=== PATIENT | female | born 1990 | race Caucasian/White ===

== ENCOUNTER 2016-09-20 20:53 | Inpatient (IN) | payer OTHER ==
[~2016-09-20] VITALS: Ht 162.6 cm; Wt 53.5 kg
[~2016-09-20 20:53] MED LIST: IBUPROFEN600 MG PO
[2016-09-20 21:02] VITALS: BP 125/78
--- NOTE | 2016-09-20 21:19 | NUR ---
Note undone in EDM - 09/20/16 at 2227 by BARRY 26 Y/O HERE W/C/O LOWER BACK AND ABD PAIN X 3 DAYS. PT STATES WAS DIAGNOSED WITH KIDNEY INFECTION BY PMD ON Wednesday09/19/16. PER PT PT HAS GOTTEN WORSE DAY BY DAY. NO S/S OF DISTRESS ER MD JOSEPHD.
--- NOTE | 2016-09-20 21:19 | NUR ---
PT TAKEN TO BED 2
--- NOTE | 2016-09-20 21:26 | NUR ---
Dr. Ferrara evaluating patient at bedside.
[2016-09-20] MEDS ORDERED: KETOROLAC 30 MG/ML VIAL IVP ONE (21:40)
[2016-09-21] MEDS ORDERED: CIPRO500 M1 PO (00:02)
[2016-09-21] MEDS ORDERED: MAPAP500 M4 PO (00:02)
[2016-09-21] MEDS ORDERED: ACETAMINOPHEN 325 MG TAB PO PRN (00:35)
[2016-09-21] MEDS ORDERED: ONDANSETRON 4 MG/2 ML VIAL IVP PRN (00:35)
[2016-09-21] MEDS ORDERED: MORPHINE SULFATE 4 MG/ML SYR IVP PRN (00:35)
--- NOTE | 2016-09-21 00:45 | NUR ---
Patient will be admitted to care of DR. Delores RAI. Admited to [facility]. Will go to room 122 A. Belongings list completed. Report to NARCISO CASIANO.
--- NOTE | 2016-09-21 00:53 | NUR ---
PT TRASFERRED TO MED SURG VIA WHEEL CHAIR BY ISAAC MATHEW. NO S/S OF DISTRESS NOTED ON TRASFER.
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
[2016-09-21 01:27] VITALS: BP 110/62
[2016-09-21] MEDS: NACL 0.9% 1,000 ML IV SCH ×3 (01:39→20:31)
--- NOTE | 2016-09-21 01:49 | NUR ---
Patient's Plan of Care was discussed and reviewed with SENIOR GROUP MANAGER: OH Traylor
--- NOTE | 2016-09-21 02:02 | NUR ---
PATIENT ENCOURAGED TO DRINK FLUIDS AND I GAVE HER SOME CRANBERRY JUICE.
--- NOTE | 2016-09-21 02:02 | NUR ---
PATIENT IS CURRENTLY EATING SHE IS ON A REGULAR DIET.IVF INFUSING WELL IV SITE PATENT.
--- NOTE | 2016-09-21 02:15 | NUR ---
MRSA OF THE [facility] HAS BEEN COLLECTED WILL BE SEND TO THE LAB.
--- NOTE | 2016-09-21 04:35 | NUR ---
PATIENT IS CURRENTLY SLEEPING IN BED,IVF INFUSING WELL IV SITE PATENT NO COMPLAINS OF PAIN OR DISCOMFORT WILL CONTINUE TO MONITOR.
--- NOTE | 2016-09-21 06:26 | NUR ---
PATIENT SLEEPING IN BED,IVF INFUSING WELL IV SITE PATENT,NO COMPLAINS OF PAIN OR DISCOMFORT NOTED WILL CONTINUE TO MONITOR.CALL LIGHT WITHIN REACH.
--- NOTE | 2016-09-21 07:30 | NUR ---
RECEIVED PT RESTING COMFORTABLY IN BED, AAOX4, ABLE TO VERBALIZE NEEDS; NO COMPLAINTS OF PAIN, N/V, OR S/S ACUTE DISTRESS AT THIS TIME. ROUTINE/PLAN OF CARE DISCUSSED AND REVIEWED, PT VERBALIZES UNDERSTANDING AND COMPLIANCE. IVF INFUSING TO RIGHT AC, SITE ASYMPTOMATIC. SAFETY PRECAUTIONS OBSERVED AND MAINTAINED, ENCOURAGED PT TO CALL FOR ASSISTANCE NEEDED.
--- NOTE | 2016-09-21 07:32 | NUR ---
PATIENT STABLE REPORT ENDORSED TO NARCISO CHLIDERS AT BEDSIDE SHE WILL RESUME CARE OF THE PATIENT.
[2016-09-21 08:00] VITALS: BP 121/72
--- NOTE | 2016-09-21 09:15 | NUR ---
PATIENT HAS BEEN SCREENED AND CATEGORIZED MODERATE NUTRITION RISK. PATIENT WILL BE SEEN WITHIN 3-5 DAYS OF ADMISSION. 09/23/16-09/25/[address]
--- NOTE | 2016-09-21 10:00 | NUR ---
INDEPENDENT ADLs OBSERVED. CONDITION REMAINS STABLE.
--- NOTE | 2016-09-21 10:08 | NUR ---
CM NOTE INITIAL REVIEW SENT TO [facility] FAX# [phone] PH# [phone] WINDY EXT [id number] MIC AUGUST EXT [phone]
[2016-09-21] MEDS: HYDROcodone/APAP 5/325 MG 1 TAB TAB PO PRN ×2 (11:55→21:38)
--- NOTE | 2016-09-21 11:55 | NUR ---
MEDICATED WITH NORCO PO FOR C/O MODERATE SUPRAPUBIC PAIN, EDUCATION GIVEN; SEE PAIN ASSESSMENT.
--- NOTE | 2016-09-21 13:15 | NUR ---
PT SEEN AND ASSESSED BY DR RAI, DISCUSSED PT CONDITION AND PLAN OF CARE. NEW ORDERS ACKNOWLEDGED. CT DONE.
[2016-09-21 16:00] VITALS: BP 114/62
--- NOTE | 2016-09-21 16:00 | NUR ---
VSS. NO S/S DISTRESS.
--- NOTE | 2016-09-21 18:00 | NUR ---
CONDITION REMAINS STABLE, FAMILY MEMBERS AT BEDSIDE.
--- NOTE | 2016-09-21 18:38 | NUR ---
ASSISTED PT OOB TO RESTROOM, TOLERATED WELL. VSS. Addendum: 09/21/16 at 1857 by Mya Mazariegos RN ERROR: INCORRECT PT.
--- NOTE | 2016-09-21 19:11 | NUR ---
CONDITION STABLE, ENDORSED PLAN OF CARE TO CHRONOMETER REPAIRER RN.
--- NOTE | 2016-09-21 19:12 | NUR ---
RECD. RESTING IN BED, AWAKE, A/OX4. RESPIRATION EVEN AND UNLABORED. IV OF NS AT 100 ML/HR INFUSING, LEFT FOREARM G. 22. ENCOURAGED TO DRINK MORE WATER AND CRANBERRY JUICES. PLAN OF CARE FOR THE SHIFT DISCUSSED. VERBALIZED UNDERSTANDING. DENIES PAIN 0/10.
--- NOTE | 2016-09-21 20:00 | NUR ---
Patient's Plan of Care was discussed and reviewed with CALENDER ROLL PRESS OPERATOR: FLORENCIA JONES
--- NOTE | 2016-09-21 21:20 | NUR ---
MOTHER CAME AND UPDATED WITH PATIENT'S LAB RESULTS. WANT TO KNOW IF PATIENT CAN GO HOME TOMORROW. INFORMED MD WILL MAKE ROUNDS TOMORROW AND MD WILL DECIDE.
[2016-09-22] VITALS: BP 114/75
--- NOTE | 2016-09-22 | NUR ---
STILL AWAKE IN BED, ADVISED TO GO TO SLEEP.
[2016-09-22] MEDS: NACL 0.9% 1,000 ML IV SCH ×3 (02:00→14:05)
--- NOTE | 2016-09-22 04:00 | NUR ---
AMBULATED TO BR TO VOID, CLAIMED HAVING PRESSURE LIKE FEELING IN THE LOWER ABDOMEN. BACK TO BED AFTER VOIDING. GAIT STEADY.
--- NOTE | 2016-09-22 06:45 | NUR ---
CONDITION REMAIN STABLE. WILL ENDORSE TO AM NURSE FOR CONTINUITY OF CARE.
--- NOTE | 2016-09-22 07:15 | NUR ---
RECEIVED REPORT FROM NIGHT NURSE. PT IS AAOX4, PT IS ON ROOM AIR. IV TO LEFT FA 22G INFUSING WELL, RIGHT AC 22G SALINE LOCK PATENT AND INTACT, SKIN INTACT. PT SATES NO PAIN AT THIS TIME. INITIAL ASSESSMENT COMPLETED. REVIEWED PLAN OF CARE WITH PT. PT VERBALIZED UNDERSTANDING. ORIENTED PT TO ROOM AND ENVIRONMENT, ALL SAFETY PRECAUTIONS MET, ALL NEEDS MET. CALL LIGHT WITHIN REACH. WILL CONTINUE TO MONITOR.
--- NOTE | 2016-09-22 07:15 | NUR ---
ENDORSED TO NARCISO WELLS FOR CONTINUITY OF CARE.
[2016-09-22 08:00] VITALS: BP 101/61
[2016-09-22] MEDS ORDERED: ENOXAPARIN 40 MG/0.4 ML SYR SUBQ SCH (09:00)
--- NOTE | 2016-09-22 09:02 | NUR ---
CM NOTE CONCURRENT REVIEW SENT TO [facility] FAX# [phone] PH# [phone] ATTN: MIC AUGUST EXT [phone]
--- NOTE | 2016-09-22 09:08 | NUR ---
DUE MEDICATIONS GIVEN. PT CURRENTLY AWAKE, WATCHING TV. ALL NEEDS MET. CALL LIGHT WITHIN REACH. WILL CONTINUE TO MONITOR.
--- NOTE | 2016-09-22 11:10 | NUR ---
CHECKED IN ON PT, PT CURRENTLY SITTING IN BED WATCHING TV, NO S/S OF DISTRESS OR DISCOMFORT NOTED. CALL LIGHT WITHIN REACH. WILL CONTINUE TO MONITOR.
--- NOTE | 2016-09-22 13:33 | NUR ---
PT CURRENTLY TALKING ON CELLPHONE. NO S/S OF DISTRESS OR DISCOMFORT NOTED. CALL LIGHT WITHIN REACH. WILL CONTINUE TO MONITOR.
[2016-09-22] MEDS: HYDROcodone/APAP 5/325 MG 1 TAB TAB PO PRN (14:20)
--- NOTE | 2016-09-22 15:35 | NUR ---
PT CURRENTLY IN BED WATCHING TO, PT STATES NO PAIN AT THIS TIME. CALL LIGHT WITHIN REACH. WILL CONTINUE TO MONITOR.
[2016-09-22 16:00] VITALS: BP 110/65
--- NOTE | 2016-09-22 16:45 | NUR ---
REVIEWED DISCHARGE PLAN WITH PT, PT VERBALIZED UNDERSTANDING.
[2016-09-22] MEDS ORDERED: KEFLEX250 MG PO (17:05)
[2016-09-22] MEDS ORDERED: NORCO 325 MG-51 TAB PO (17:06)
--- NOTE | 2016-09-22 17:20 | NUR ---
PT SIGNED ALL DISCHARGE PAPERWORK, PRESCRIPTION AND EDUCATION GIVEN PT VERBALIZED UNDERSTANDING, IV REMOVED TIP INTACT. ID BANDS REMOVED, ALL PERSONAL BELONGINGS WITH PT. AWAITING FOR PT MOTHER TO PICK HER UP.
--- NOTE | 2016-09-22 17:56 | NUR ---
PT WAS WALKED OUT TO FRONT LOBBY IN STABLE CONDITION.
== END 2016-09-22 17:57 | disposition home or self-care (01) | DRG 347 ==
LOC: MED 20:53 → MTU 09-21 00:08
PROVIDERS: ADMIT Hospitalist; ATTEND Hospitalist
DX: M43.17 Spondylolisthesis, lumbosacral region (principal); N12 Tubulo-interstitial nephritis, not specified as acute or chronic; M47.897 Other spondylosis, lumbosacral region; Z79.2 Long term (current) use of antibiotics; Z79.899 Other long term (current) drug therapy

== ENCOUNTER 2019-03-28 13:10 | Emergency (ER) | payer OTHER ==
[~2019-03-28] VITALS: Ht 157.5 cm; Wt 59.0 kg
[~2019-03-28 13:10] MED LIST changes: +ACET-1082 PO; +CEPH250C16 PO; +HYDR-5122 PO; -IBUPROFEN600 MG PO
--- NOTE | 2019-03-28 13:16 | NUR ---
PATIENT AMBULATED TO BED 9
[2019-03-28 13:20] VITALS: BP 132/83
--- NOTE | 2019-03-28 13:40 | NUR ---
Patient presents to ER for intermittant chest wall pain starting at 0500. Currently denies chest pain. c/o SOB, patients oxygen saturation 100% on room air. Respirations even and unlabored. can speak in complete sentences without difficulty. Patient is AA&Ox4. Placed on library monitor sinus tach noted, 102 hr. denies any past medical history. Updated on poc, verbalized understanding. Will continue to monitor.
--- NOTE | 2019-03-28 14:13 | NUR ---
PA at bedside.
[2019-03-28 14:28] VITALS: BP 104/77
== END 2019-03-28 14:27 | disposition home or self-care (01) ==
LOC: MED 13:10
DX: R07.89 Other chest pain (principal); R06.02 Shortness of breath; Z79.2 Long term (current) use of antibiotics; Z79.891 Long term (current) use of opiate analgesic; Z79.1 Long term (current) use of non-steroidal anti-inflammatories (NSAID)
CPT/HCPCS: 93005; 99283

== ENCOUNTER 2019-07-06 16:56 | Emergency (ER) | payer OTHER ==
--- NOTE | 2019-07-06 17:30 | NUR ---
NO ANSWER IN ER LOBBY
--- NOTE | 2019-07-06 18:08 | NUR ---
NO ANSWER IN ER LOBBY
== END 2019-07-06 17:40 | disposition left against medical advice (07) ==
LOC: MED 16:56
DX: Z53.21 Procedure and treatment not carried out due to patient leaving prior to being seen by health care provider (principal)

== ENCOUNTER 2022-11-03 20:16 | Emergency (ER) | payer OTHER ==
[~2022-11-03] VITALS: Ht 152.4 cm; Wt 67.6 kg
[2022-11-03 21:09] VITALS: BP 130/76
[2022-11-03 21:28] VITALS: BP 130/76
--- NOTE | 2022-11-03 21:39 | NUR ---
Blood for labwork drawn by [facility]. Patient tolerated well.
[2022-11-03 21:48] LABS: BILIRUBIN,URINE NEGATIVE (NEGATIVE); BLOOD, URINE 3+ (NEGATIVE); COLOR,URINE YELLOW (YELLOW); LEUKOCYTE ESTERASE ,URINE 1+ (NEGATIVE); NITRITE, URINE NEGATIVE (NEGATIVE); PH,URINE 6.5 (5.0-9.0); UGLUCOSE NEGATIVE (NEGATIVE)
[2022-11-03 21:50] LABS: BASOPHILS % (AUTO) 0.4 % (0.0-2.0); EOSINOPHILS # (AUTO) 0.1 K/uL (0-0.4); EOSINOPHILS % (AUTO) 0.6 % (0.0-4.0); HEMATOCRIT 39.2 % (36-48); HEMOGLOBIN 13.3 g/dL (12.0-16.0); LYMPHOCYTES # (AUTO) 2.7 K/uL (2.5-16.5); MEAN CORPUSCULAR HEMOGLOBIN 29 pg (27-31); MEAN CORPUSCULAR HGB CONC 34 g/dL (33-37); MONOCYTES # (AUTO) 0.4 K/uL (0.8-1.0); MONOCYTES % (AUTO) 5.2 % (1.7-9.3); NEUTROPHILS # (AUTO) 5.3 K/uL (1.8-7.7); NEUTROPHILS % (AUTO) 61.8 % (42.2-75.2); PLATELET COUNT (AUTO) 314 K/uL (140-450); RED BLOOD CELL COUNT(AUTO) 4.62 MIL/uL (4.20-5.40); RED CELL DISTRIBUTION WIDTH 12.9 % (11.6-13.7); WHITE BLOOD COUNT (AUTO) 8.6 K/uL (4.8-10.8)
--- NOTE | 2022-11-03 21:52 | NUR ---
PT TAKEN TO BED 5
[2022-11-03 21:57] LABS: APPEARANCE,URINE CLOUDY (CLEAR)
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
[2022-11-03 22:05] LABS: ANION GAP 12.1 (8-16); CARBON DIOXIDE 26.9 mmol/L (21-32); CREATININE 0.9 mg/dL (0.6-1.3); TOTAL BILIRUBIN 0.3 mg/dL (0.0-1.0)
--- NOTE | 2022-11-03 22:23 | NUR ---
Dr. Merino examining patient.
[2022-11-03] MEDS ORDERED: AMOX1TAB8 PO ×2 (23:02→23:08)
[2022-11-03] MEDS ORDERED: IBUP-1842 PO ×2 (23:03→23:08)
--- NOTE | 2022-11-03 23:09 | NUR ---
Patient discharged with v/s stable. Written and verbal after care instructions given and explained. Patient alert, oriented and verbalized understanding of instructions. Ambulatory with steady gait. All questions addressed prior to discharge. ID band removed. Patient advised to follow up with PMD. Rx of AMOXICILLIN AND IBUPROFEN given. Patient educated on indication of medication including possible reaction and side effects. Opportunity to ask questions provided and answered.
--- NOTE | 2022-11-03 23:12 | NUR ---
The patient's care was reviewed and supervised by Delores Muro RN.
== END 2022-11-03 23:09 | disposition home or self-care (01) ==
LOC: MED 20:16
DX: N12 Tubulo-interstitial nephritis, not specified as acute or chronic (principal); Z79.899 Other long term (current) drug therapy; Z79.2 Long term (current) use of antibiotics; Z79.1 Long term (current) use of non-steroidal anti-inflammatories (NSAID)
CPT/HCPCS: 36415; 80053; 81001; 81025; 85025; 87086; 99283